=== PATIENT | female | born 1950 | race Two or more races ===

== ENCOUNTER → 2016-06-29 | Day surgery (SDC) | payer MEDICARE, OTHER ==
--- NOTE | 2016-06-28 13:04 | Pre-Procedure Note/Attestation ---
Pre-Procedure Note/Attestation Complete Prior to Procedure Planned Procedure: right Procedure Narrative: phaco with IOL Indications for Procedure Pre-Operative Diagnosis: Cataract Attestation I attest that I discussed the nature of the procedure; its benefits; risks and complications; and alternatives (and the risks and benefits of such alternatives ), prior to the procedure, with the patient (or the patient's legal inventory representative). I attest that, if there was a reasonable possibility of needing a blood transfusion, the patient (or the patient's legal inventory representative) was given the [facility] standardized written summary, pursuant to the [place] Blood Safety Act ([place] Health and Safety Code # 1645, as amended). I attest that I re-evaluated the patient just prior to the surgery and that there has been no change in the patient's H&P, except as documented below: OPAL BURGESS Jun 28, 2016 13:04
--- NOTE | 2016-06-28 13:05 | Opthalmology H&P ---
Ophthalmology H&P H&P Chief Complaint: decreased vision in right eye HPI Vision Affects Ability to: read, focus/use eyes together, manage personal affairs HPI Narrative blurry vision Exam Visual Acuity: OD: CF OS: CF Tension: OD: 15 OS: 15 Eye Exam: normal OU: anterior chambers, corneas, external exam, levator function, palpebral fissure-width, findings: lens - OD: ns OS: ns Assessment/Plan Diagnosis: (1) Cataract Treatment Plan: cataract extraction w/ lens implant Goals of Treatment: improvement of vision, enhance quality of life Attestation Attestation The risks and benefits of the surgery as well as alternative procedures were explained to the patient in detail. OPAL BURGESS Jun 28, 2016 13:05
[2016-06-29] VITALS (9 sets, daily range): BP systolic 149–165; BP diastolic 67–75
[~2016-06-29] VITALS: Ht 162.6 cm; Wt 80.7 kg
[~2016-06-29] MED LIST: Akten 3.5% 1ml Btl RIGHT EYE ONE; BSS 15ml BTL ONE; Bupivacaine 0.75% 30ml vial INJ ONE; CLOPIDOGREL75 MG ORAL; Carbachol 0.01% Op Soln 1.5ml vial ONE; DIOVAN80 MG ORAL; EPINEPHrine 1mg/1ml Amp ONE; FAMOTIDINE40 MG ORAL; GABAPENTIN300 MG ORAL; GEMFIBROZIL600 MG ORAL; Hydromorphone 0.5mg/0.5ml inj IVP PRN; Ketorolac 30mg Inj IV PRN; LEVOTHYROXINE100 MCG ORAL; LEXAPRO10 MG ORAL; Lidocaine 2% MPF 5ml Vial INJ ONE; Lidocaine 4% Amp ONE; METOCLOPRAMIDE H5 M1 ORAL; Midazolam 2mg/2ml Inj ONE; NS Irrig 1000ml ONE; Norco 5mg/325mg tab ORAL PRN; PANTOPRAZOLE SO40 MG ORAL; Pilocarpine 4% Opth Soln ONE; Povidone-Iodine 5% opth solution ONE; Sodium Hyaluronate 10 mg/ml 0.85ml ONE; Sodium Hyaluronate 14 mg/ml 0.85ml ONE; Sterile Water Irrig 1000ml IRRIG ONE; TRAZODONE HCL150 MG ORAL; Tobramycin Op Soln 0.3% RIGHT EYE ONE; VITAMIN D250000 UNI1 ORAL; acetaZOLAMIDE 500mg Inj ONE; fentaNYL 100 mcg/2 mL IV ONE; fentaNYL 100 mcg/2 mL IV PRN
[2016-06-29] MEDS: Tropicamide 1% Opth Soln RIGHT EYE SCH ×3 (10:11→10:39)
[2016-06-29] MEDS: Diclofenac Sod 0.1% Op Soln RIGHT EYE SCH ×3 (10:11→10:39)
[2016-06-29] MEDS: Phenylephrine 10% Opth Soln 5ml RIGHT EYE SCH ×3 (10:12→10:39)
[2016-06-29] MEDS: Cyclopentolate 1% Opth Sol RIGHT EYE SCH ×3 (10:12→10:39)
--- NOTE | 2016-06-29 11:08 | Anethesia Preoperative Eval ---
Anesthesia Pre-op PMH/ROS General Date of Evaluation: Jun 29, 2016 Time of Evaluation: 10:35 Anesthesiologist: Teddy ASA Score: ASA 3 Mallampati Score Class I : Soft palate, uvula, fauces, pillars visible Class II: Soft palate, uvula, fauces visible Class III: Soft palate, base of uvula visible Class IV: Only hard plate visible Mallampati Classification: Class II Surgeon: Charmaine Diagnosis: Cataract Surgical Procedure: Cataract Allergies: Coded Allergies: No Known Allergies (Unverified , 06/27/16) Medications: see eMAR Past Medical History Cardiovascular: Reports: CAD, HTN Pulmonary: Reports: COPD Gastrointestinal/Genitourinary: Reports: GERD Neurologic/Psychiatric: Denies: CVA, TIA, dementia, depression/anxiety, other Endocrine: Reports: DM HEENT: Reports: cataract (R) Hematology/Immune: Denies: DVT, anemia, bleeding disorder, other Musculoskeletal/Integumentary: Reports: DJD Anesthesia Pre-op Phys. Exam Physician Exam Last Vital Signs Date Time Temp Pulse Resp B/P Pulse Ox O2 Delivery O2 Flow Rate FiO2 06/29/16 10:13 97.8 71 18 159/68 99 Room Air Constitutional: NAD Cardiovascular: RRR Airway Exam Mallampati Score: Class II Anesthesia Pre-op A/P Labs Chemistry Test 06/29/16 10:25 Potassium Level 3.8 mEQ/L (3.4-4.9) CRYSTAL HICKMAN M.D. Jun 29, 2016 11:08
--- NOTE | 2016-06-29 11:09 | Immediate Post-Op Evaluation ---
Immediate Post-Op Evalulation Immediate Post-Op Evalulation Procedure: Cataact Date of Evaluation: Jun 29, 2016 Time of Evaluation: 11:15 IV Fluids: 200 Blood Products: 0 Estimated Blood Loss: 0 Urinary Output: 0 Blood Pressure Systolic: 160 Blood Pressure Diastolic: 80 Pulse Rate: 70 Respiratory Rate: 20 O2 Sat by Pulse Oximetry: 97 Temperature (Fahrenheit): 98 Pain Score (1-10): 2 Nausea: No Vomiting: No Complications na Patient Status: awake Hydration Status: adequate Given Within 1 Hr of Incision: CRYSTAL Menon M.D. Jun 29, 2016 11:09
--- NOTE | 2016-06-29 11:10 | 48 Hour Post Anesthesia Eval ---
Post Anesthesia Evaluation Procedure: Cataact Date of Evaluation: Jun 29, 2016 Time of Evaluation: 12:15 Blood Pressure Systolic: 160 0: 80 Pulse Rate: 70 Respiratory Rate: 20 Temperature (Fahrenheit): 98 O2 Sat by Pulse Oximetry: 97 Airway: patent Nausea: No Pain Intensity: 2 Hydration Status: adequate Cardiopulmonary Status: stable Mental Status/LOC: patient returned to baseline Follow-up Care/Observations: na Post-Anesthesia Complications: na Follow-up care needed: N/A CRYSTAL HICKMAN M.D. Jun 29, 2016 11:10
--- NOTE | 2016-07-02 09:09 | Brief Operative Note ---
Immediate Post Operative Note Operative Note Chief Complaint: blurry vision Pre-op Diagnosis: Cataract, OD Procedure: Phaco with IOL, OD Post-op Diagnosis: Pseudophakia, OD Post-op Diagnosis: same as pre-op Findings: consistent w/pre-op dx studies Surgeon: Charmaine Anesthesiologist: Teddy Anesthesia: MAC Specimen: none Complications: none Condition: stable Estimated Blood Loss: none Drains: none Implant(s) used?: Yes OPAL BURGESS Jul 02, 2016 09:09
--- NOTE | 2016-07-02 09:19 | Brief Operative Note ---
Immediate Post Operative Note Operative Note Chief Complaint: blurry vision Pre-op Diagnosis: Cataract, OD Procedure: planned Phaco with IOL, OD not done due to eye irritation, OD Post-op Diagnosis: Cataract, OD; Eye Irritation OD Post-op Diagnosis: same as pre-op Findings: consistent w/pre-op dx studies Surgeon: Charmaine Anesthesiologist: Teddy Anesthesia: MAC Specimen: none Complications: none Condition: stable Estimated Blood Loss: none Drains: none Implant(s) used?: No OPAL BURGESS Jul 02, 2016 09:19
--- NOTE | 2016-07-02 09:29 | Operative Note - PDOC ---
Operative Note Operative Note Date of Operation/Procedure: Jun 29, 2016 Chief Complaint: blurry vision Pre-op Diagnosis: Cataract, OD Procedure: planned Phaco with IOL, OD not done due to eye irritation, OD Post-op Diagnosis: Cataract, OD; Eye Irritation OD Post-op Diagnosis: same as pre-op Operative Findings: consistent w/pre-op dx studies Surgeon: Charmaine Anesthesiologist: Teddy Anesthesia: MAC Specimen: none Complications: none Condition: stable Estimated Blood Loss: none Drains: none Implant(s) used?: No Indications for Procedure Cataract, OD Description of Procedure This patient has been complaining visually significant cataract in the affected eye with the best corrected visual acuity under moderate glare conditions worse. The patient complains of difficulties with glare in performing activities of daily living and wants to manage personal affairs with comfort and accuracy and see well enough to move with safety at home and outdoors. ~~~ The risks, benefits and alternatives of the procedure were discussed with the patient in the office prior to scheduling surgery. All questions from the patient were answered after the surgical procedure was explained in detail. The risks of the procedure as explained to the patient include, but are not limited to, pain, infection, bleeding, loss of vision, retinal detachment, need for further surgery, loss of lens nucleus, double vision, etc. Alternative procedures were discussed which include, to do nothing or seek a second opinion. Informed consent for this procedure was obtained from the patient. The patient was referred to a primary care physician for a cardiopulmonary clearance prior to surgery, after proper evaluation was done patient was properly scheduled for outpatient surgery. The patient was brought to the operating room where the anesthesiologist established I.V. lines and cardiac monitoring leads. Mild intravenous sedation was administered. The patient was then prepared with a 5% solution of povidone- iodine to the conjunctival fornix and lashes, but noted surgical eye to have irritation. After careful re-evaluation, planned cataract surgery was not done.The patient was taken to the recovery room in stable condition.. The patient was then transferred to the ambulatory surgery unit in stable and satisfactory condition, was given detailed written instructions and asked to follow up in the office the next day. ~ ~ Dictated & Transcribed: [facility] Jesica ORTIZ JAMES Jul 02, 2016 09:29
== END | disposition home or self-care (01) ==
LOC: SUR 06:25
DX: H26.9 Unspecified cataract (principal); Z53.09 Procedure and treatment not carried out because of other contraindication; H57.8 Other specified disorders of eye and adnexa; I12.0 Hypertensive chronic kidney disease with stage 5 chronic kidney disease or end stage renal disease; N18.6 End stage renal disease; Z99.2 Dependence on renal dialysis; I25.10 Atherosclerotic heart disease of native coronary artery without angina pectoris; J44.9 Chronic obstructive pulmonary disease, unspecified; I70.219 Atherosclerosis of native arteries of extremities with intermittent claudication, unspecified extremity; E11.43 Type 2 diabetes mellitus with diabetic autonomic (poly)neuropathy; K31.84 Gastroparesis; Z79.4 Long term (current) use of insulin; K21.9 Gastro-esophageal reflux disease without esophagitis; E03.9 Hypothyroidism, unspecified; M19.90 Unspecified osteoarthritis, unspecified site
CPT/HCPCS: 36415; 66984; 82962; 84132; J2250; J3010; 94003; 94150

== ENCOUNTER → 2016-07-16 | Day surgery (SDC) | payer MEDICARE, OTHER ==
--- NOTE | 2016-07-12 11:10 | Pre-Procedure Note/Attestation ---
Pre-Procedure Note/Attestation Complete Prior to Procedure Planned Procedure: right Procedure Narrative: phaco with IOL Indications for Procedure Pre-Operative Diagnosis: cataract Attestation I attest that I discussed the nature of the procedure; its benefits; risks and complications; and alternatives (and the risks and benefits of such alternatives ), prior to the procedure, with the patient (or the patient's legal front desk representative). I attest that, if there was a reasonable possibility of needing a blood transfusion, the patient (or the patient's legal front desk representative) was given the [facility] standardized written summary, pursuant to the [place] Blood Safety Act ([place] Health and Safety Code # 1645, as amended). I attest that I re-evaluated the patient just prior to the surgery and that there has been no change in the patient's H&P, except as documented below: OPAL BURGESS Jul 12, 2016 11:10
--- NOTE | 2016-07-12 14:01 | Opthalmology H&P ---
Ophthalmology H&P H&P Chief Complaint: decreased vision in right eye HPI Vision Affects Ability to: read, focus/use eyes together, manage personal affairs HPI Narrative blurry vision Exam Visual Acuity: OD: Cf OS: CF Tension: OD: 16 OS:15 Eye Exam: normal OU: anterior chambers, corneas, external exam, levator function, marginal reflex distance, palpebral fissure-width, findings: fundus exam - OD: 0.4 OS:0.6, lens - OD ns OS: ns Assessment/Plan Diagnosis: (1) Cataract Treatment Plan: cataract extraction w/ lens implant Goals of Treatment: improvement of vision, enhance quality of life Attestation Attestation The risks and benefits of the surgery as well as alternative procedures were explained to the patient in detail. OPAL BURGESS Jul 12, 2016 14:01
[2016-07-16] VITALS (8 sets, daily range): BP systolic 131–197; BP diastolic 75–100
[~2016-07-16] VITALS: Ht 162.6 cm; Wt 81.6 kg
[~2016-07-16] MED LIST changes: +BSS 500ml btl ONE; -Bupivacaine 0.75% 30ml vial INJ ONE; -Carbachol 0.01% Op Soln 1.5ml vial ONE; +Dexamethasone 4mg/ml vial ONE; +DiphenhydrAMINE 50mg/ml Inj IVP PRN; -Hydromorphone 0.5mg/0.5ml inj IVP PRN; -Ketorolac 30mg Inj IV PRN; +LR 1000ml 1,000 ML IVLG SCH; +Labetalol 5mg/ml 20ml vial IV PRN; +Lidocaine 1% MPF 10mg/ml 5ml ONE; -Lidocaine 2% MPF 5ml Vial INJ ONE; -Lidocaine 4% Amp ONE; +Maxitrol Opth Oint 3.5gm ONE; -Midazolam 2mg/2ml Inj ONE; +NS 110ml ONE; -NS Irrig 1000ml ONE; -Norco 5mg/325mg tab ORAL PRN; -Pilocarpine 4% Opth Soln ONE; +Pred Forte 1% Opth Susp 1ml ONE; -Sodium Hyaluronate 10 mg/ml 0.85ml ONE; -Sterile Water Irrig 1000ml IRRIG ONE; -acetaZOLAMIDE 500mg Inj ONE; -fentaNYL 100 mcg/2 mL IV PRN
[2016-07-16] MEDS: Cyclopentolate 1% Opth Sol RIGHT EYE SCH ×3 (06:47→07:21)
[2016-07-16] MEDS: Diclofenac Sod 0.1% Op Soln RIGHT EYE SCH ×3 (06:48→07:21)
[2016-07-16] MEDS: Phenylephrine 10% Opth Soln 5ml RIGHT EYE SCH ×3 (06:48→07:21)
[2016-07-16] MEDS: Tropicamide 1% Opth Soln RIGHT EYE SCH ×3 (06:48→07:21)
--- NOTE | 2016-07-16 07:41 | Anethesia Preoperative Eval ---
Anesthesia Pre-op PMH/ROS General Date of Evaluation: Jul 16, 2016 Anesthesiologist: Mehdi ASA Score: ASA 3 Mallampati Score Class I : Soft palate, uvula, fauces, pillars visible Class II: Soft palate, uvula, fauces visible Class III: Soft palate, base of uvula visible Class IV: Only hard plate visible Mallampati Classification: Class II Surgeon: Charmaine Diagnosis: Right cataract Surgical Procedure: Right cataract extraction with IOL Anesthesia History: none Family History: no anesthesia problems Allergies: Coded Allergies: No Known Allergies (Unverified , 06/27/16) Medications: see eMAR Past Medical History Cardiovascular: Reports: HTN, other - HLD, Denies: CAD, VA, arrhythmia, valve dz Pulmonary: Denies: COPD, ROMINA, asthma, other Gastrointestinal/Genitourinary: Reports: ESRD - on HD-last dialysis yesterday, full session, no problems, GERD, Denies: CRI, other Neurologic/Psychiatric: Denies: CVA, TIA, dementia, depression/anxiety, other Endocrine: Reports: DM, hypothyroidism, Denies: other, steroids HEENT: Reports: cataract (L), cataract (R), Denies: CREEK (L), CREEK (R), glaucoma, other Hematology/Immune: Denies: DVT, anemia, bleeding disorder, other Musculoskeletal/Integumentary: Reports: OA, Denies: DDD, DJD, RA, edema, other PSxH Narrative: AVF Anesthesia Pre-op Phys. Exam Physician Exam Last Vital Signs Date Time Temp Pulse Resp B/P Pulse Ox O2 Delivery O2 Flow Rate FiO2 07/16/16 06:50 96.8 67 20 131/84 96 Room Air Constitutional: NAD Cardiovascular: RRR Respiratory: CTA Airway Exam Mallampati Score: Class III MO: limited ROM: limited Teeth: missing Anesthesia Pre-op A/P Labs see chart Studies Pre-op Studies: EKG - sr Risk Assessment & Plan Assessment: ASA III Plan: MAC Status Change Before Surgery: No Pre-Antibiotics Drug: N/A MAURISIO ANAND M.D. Jul 16, 2016 07:41
--- NOTE | 2016-07-16 07:43 | Immediate Post-Op Evaluation ---
Immediate Post-Op Evalulation Immediate Post-Op Evalulation Procedure: Right cataract extraction with IOL Date of Evaluation: Jul 16, 2016 Time of Evaluation: 08:32 IV Fluids: 100 Blood Products: 0 Estimated Blood Loss: 0 Urinary Output: 0 Blood Pressure Systolic: 172 Blood Pressure Diastolic: 78 Pulse Rate: 66 Respiratory Rate: 16 O2 Sat by Pulse Oximetry: 99 Temperature (Fahrenheit): 97 Pain Score (1-10): 0 Nausea: No Vomiting: No Complications 0 Patient Status: awake, reacts, patent, none Hydration Status: adequate Drug: N/A MAURISIO ANAND M.D. Jul 16, 2016 07:43
--- NOTE | 2016-07-16 07:44 | 48 Hour Post Anesthesia Eval ---
Post Anesthesia Evaluation Procedure: Right cataract extraction with IOL Date of Evaluation: Jul 16, 2016 Blood Pressure Systolic: 161 0: 89 Pulse Rate: 62 Respiratory Rate: 16 O2 Sat by Pulse Oximetry: 98 Airway: patent Nausea: No Vomiting: No Pain Intensity: 0 Hydration Status: adequate Cardiopulmonary Status: at baseline Mental Status/LOC: patient returned to baseline Post-Anesthesia Complications: 0 Follow-up care needed: ready to discharge MAURISIO ANAND M.D. Jul 16, 2016 07:44
--- NOTE | 2016-07-16 15:03 | Brief Operative Note ---
Immediate Post Operative Note Operative Note Chief Complaint: blurry vision Pre-op Diagnosis: cataract, OD Procedure: phaco with IOL, OD Post-op Diagnosis: Pseudophakia, OD Post-op Diagnosis: same as pre-op Findings: consistent w/pre-op dx studies Surgeon: Charmaine Anesthesiologist: Bharti Anesthesia: MAC Specimen: none Complications: none Condition: stable Estimated Blood Loss: none Drains: none Implant(s) used?: Yes OPAL BURGESS Jul 16, 2016 15:03
--- NOTE | 2016-07-16 15:49 | Operative Note - PDOC ---
Operative Note Operative Note Date of Operation/Procedure: Jul 16, 2016 Chief Complaint: blurry vision Pre-op Diagnosis: cataract, OD Procedure: phaco with IOL, OD Post-op Diagnosis: Pseudophakia, OD Post-op Diagnosis: same as pre-op Operative Findings: consistent w/pre-op dx studies Surgeon: Charmaine Anesthesiologist: Bharti Anesthesia: MAC Specimen: none Complications: none Condition: stable Estimated Blood Loss: none Drains: none Implant(s) used?: Yes Indications for Procedure cataract Description of Procedure This patient has been complaining visually significant cataract in the affected eye with the best corrected visual acuity under moderate glare conditions worse. The patient complains of difficulties with glare in performing activities of daily living and wants to manage personal affairs with comfort and accuracy and see well enough to move with safety at home and outdoors. ~~~ The risks, benefits and alternatives of the procedure were discussed with the patient in the office prior to scheduling surgery. All questions from the patient were answered after the surgical procedure was explained in detail. The risks of the procedure as explained to the patient include, but are not limited to, pain, infection, bleeding, loss of vision, retinal detachment, need for further surgery, loss of lens nucleus, double vision, etc. Alternative procedures were discussed which include, to do nothing or seek a second opinion. Informed consent for this procedure was obtained from the patient. The patient was referred to a primary care physician for a cardiopulmonary clearance prior to surgery, after proper evaluation was done patient was properly scheduled for outpatient surgery. The patient was brought to the operating room where the anesthesiologist established I.V. lines and cardiac monitoring leads. Mild intravenous sedation was administered.~~ The patient was then prepared with a 5% solution of povidone -iodine to the conjunctival fornix and lashes, and a 10% solution of povidone- iodine to the lids and periorbital skin. The patient was then draped in the usual sterile fashion. A lid speculum was then placed in the operative eye. A keratome blade was then used to create a biplanar incision into the anterior chamber. Viscoelastics was then instilled into the anterior chamber. A capsulorrhexis was then fashioned with an utrata forceps followed by a BSS and a cannula were then used to hydrodissect and hydro delineate the lens. Paracentesis incision was made at 3 o'clock with sharp blade. The phacoemulsification unit, after being properly adjusted~ and tested, was then used to emulsify the nucleus. Residual cortical material was aspirated with the irrigation and aspiration unit. Healon was then instilled into the anterior chamber. The corneal wound was then enlarged to the size of the optic with the deangelo keratome blade. The intraocular lens was then inspected for right~ power and size~ and thought to be satisfactory. Then the lens was gently placed in the capsular bag. Positioning within the capsular bag was confirmed by direct visualization. Viscoelastics~ was removed from the anterior chamber using the irrigation and aspiration unit. The corneal wound was then tested for leaks and none were found. The lid speculum were then removed. Sponge and needle counts were correct. An eye patch and shield were placed over the operative eye. The patient was taken to the recovery room in stable condition. There were no complications. The patient tolerated the procedure well. The patient was then transferred to the ambulatory surgery unit in stable and satisfactory condition , was given detailed written instructions and asked to follow up~ in the office the next day. ~ ~ Dictated & Transcribed: [facility] Jesica ORTIZ JAMES Jul 16, 2016 15:49
== END | disposition home or self-care (01) ==
LOC: SUR 05:50
DX: H26.9 Unspecified cataract (principal); I12.0 Hypertensive chronic kidney disease with stage 5 chronic kidney disease or end stage renal disease; N18.6 End stage renal disease; Z99.2 Dependence on renal dialysis; E11.9 Type 2 diabetes mellitus without complications; I70.218 Atherosclerosis of native arteries of extremities with intermittent claudication, other extremity; E78.5 Hyperlipidemia, unspecified; E11.43 Type 2 diabetes mellitus with diabetic autonomic (poly)neuropathy; K31.84 Gastroparesis; M19.90 Unspecified osteoarthritis, unspecified site; K21.9 Gastro-esophageal reflux disease without esophagitis; E03.9 Hypothyroidism, unspecified; Z79.82 Long term (current) use of aspirin; Z79.4 Long term (current) use of insulin
CPT/HCPCS: 36415; 66984; 82962; 84132; J0171; J1100; J3010; J3370; V2632; 94003; 94150